=== PATIENT | female | born 1990 | race Hispanic/Latino ===

== ENCOUNTER 2018-06-19 11:03 | Inpatient (IN) | payer MEDICAID, OTHER ==
[2018-06-19 20:33] VITALS: BMI 37.5
[2018-06-19] MEDS ORDERED: Dextrose 5% in Water 1,000 ML IV PRN ×2 (21:49→22:08)
[2018-06-19] MEDS ORDERED: Dextrose 50% Abboject 50 ML SYRINGE SLOW IVP PRN ×2 (21:49→22:08)
[2018-06-19] MEDS ORDERED: Aspirin 81 mg Enteric Coated Tablet PO SCH (22:15)
--- NOTE | 2018-06-19 22:16 | PDOC.FPRHP ---
Addendum entered and electronically signed by Vita López MD 06/20/18 04:54 : HPI: 27 yo at 13.0 by 11.5 wk sravan Original Note: - History of Present Illness Chief Complaint: uncontrolled sugars History of Present Illness: 18 yo at 12.5 wks by 1T sravan sent as direct admit from [facility] for uncontrolled pregestational DM. FBG at home was 180 and postprandial 200s. Endorses polydipsia, denies other symptoms. Denies VB, LOF, CTX. - Allergies/Adverse Reactions Allergies Allergy/AdvReac Type Severity Reaction Status Date / Time No Known Allergies Allergy Unverified 04/02/14 00:09 - Home Medications Medication Instructions Recorded Confirmed Type Pnv No.95/Ferrous Fum/Folic AC 1 tablet PO DAILY 04/02/14 06/20/18 History [ Tablet] - History PMHx: denies PSHx: denies FHx: DM2 Social: denies t/e/d - Review of Systems General: denies: fever/chills, weight/appetite/sleep changes Eyes: denies: eye pain, vision changes ENT: denies: nasal congestion Respiratory: denies: congestion, shortness of breath Cardiovascular: denies: chest pain, palpitation, edema Gastrointestinal: denies: nausea, vomiting, diarrhea, constipation Genitourinary: denies: incontinence Musculoskeletal: denies: pain, tenderness Neurological: denies: seizure, weakness Psychological: denies: anxiety, depression - Vital signs BP: [125/70] HR: [82] RR: [18 Tmax: [98.2] Pox: [99% on [RA] Wt: [108kg] - Physical Exam Constitutional: NAD, awake, alert and oriented HEENT: normocephalic and atraumatic, PERRLA, EOMI, no scleral icterus, grossly normal vision Neck: supple, FROM Chest: no-tender to palpation Heart: RRR, normal S1/S2, no edema Lungs: CTAB, no respiratory distress, no wheezing, no retractions Abdomen: soft -Abdomen: gravid Neurological: no focal deficit, CN II-XII intact Skin: no rash/lesions, good turgor Heme/Lymphatic: no unusual bruising or bleeding Psychiatric: normal mood and affect, good judgment and insight, intact recent and remote memory FMR H&P: Results - Labs Result Diagrams: 06/19/18 22:36 FMR H&P: A/P - Problem List (1) in multigravida Current Visit: Yes Status: Acute Code(s): Z34.80 - ENCOUNTER FOR SUPRVSN OF NORMAL , UNSP TRIMESTER (2) Maternal pregestational diabetes, classes B through R Current Visit: Yes Status: Acute Code(s): [id number] - - Plan 27 yo @ ~13 wks by 1T sravan here for uncontrolled pregestational DM #pregestational DM, White Class B -A1c 10.3 here -TSH, EKG, CMP, 24 hr urine protein collection to better classify -CC diet with high fat/protein snack at bedtime -Start NPH 19U & Humalog 10U at breakfast, Humalog 7U pre-dinner, NPH 7U qHS -Accuchecks fasting & 2 hr postprandial -Pt has not eaten dinner, will feed dinner & start insulin regimen this evening -Will need to verify with clinic records dating with 1T US, if needed can repeat here -Start on daily aspirin -Diabetic education # in multigravida -Continue routine care with Dr. Vizcaino #Obesity -Desk Attendant on lifestyle modification dvt ppx: SCD Discussed w/ Dr. Lima FMR H&P: Upper Level - Plan Date/Time: 06/19/18 3444 I, [], have evaluated this patient and agree with findings/plan as outlined by collector of internal revenue resident. Pertinent changes/additions are listed here. Addendum - Attending - Attending Attestation Date/Time: 06/20/18 0080 I personally evaluated the patient and discussed the management with Dr. López I agree with the History, Examination, Assessment and Plan documented above with any addition or exceptions noted below.
[2018-06-19 23:07] LABS: Hemoglobin A1c 10.3 % (4.0-6.0)
[2018-06-19 23:11] LABS: ALT (SGPT) 14 U/L (8-55); AST (SGOT) 15 U/L (5-34); Albumin 3.6 g/dL (3.5-5.0); Alkaline Phosphatase 43 U/L (40-150); Anion Gap 13 mmol/L (10-20); BUN (Urea Nitrogen) 5 mg/dL (7.0-18.7); Bilirubin, Total 0.4 mg/dL (0.2-1.2); Calc. Creatinine Clearance 219 mL/min (70-130); Calcium 9.7 mg/dL (7.8-10.44); Carbon Dioxide 25 mmol/L (22-29); Chloride 100 mmol/L (98-107); Estimated GFR-MDRD Greater than 90; Globulin 3.7 g/dL (2.4-3.5); Glucose 140 mg/dL (70-105); Potassium 3.7 mmol/L (3.5-5.1); Protein, Total 7.3 g/dL (6.0-8.3); Sodium 134 mmol/L (136-145)
[2018-06-20 07:57] LABS: Bilirubin Negative (Negative); Blood, Urine Negative (Negative); Clarity CLOUDY (Clear); Glucose, Urine (Dipstick) Negative (Negative); Leukocyte Small (Negative); Nitrite Negative (Negative); Protein, Urine (Dipstick) Negative (Neg-Trace); Specific Gravity, Urine 1.007 (1.002-1.036); Urobilinogen 0.2 mg/dL (0.2-1.0)
[2018-06-20 07:59] LABS: Bacteria/HPF Rare-Few HPF (None Seen); Hyaline Casts/LPF 0-3 HYALINE CAST LPF (0-3 Hyaline); Pathc Cast-AUWi Flag 0.13 (0-2.49); Squamous Epithelial 0-3 HPF (0-3)
[2018-06-20 08:02] LABS: Sperm-AUWi Flag 145.9 (0-9.9); Yeast-AUWi Flag 813.8 (0-25.0)
[2018-06-20 08:12] LABS: RBC/HPF 0-3 HPF (0-3); Yeast-All Forms 3+ HPF (None Seen)
[2018-06-20] MEDS: Aspirin 81 mg Enteric Coated Tablet PO SCH (08:31)
--- NOTE | 2018-06-20 08:31 | PDOC.FM ---
- Subjective Subjective: No events overnight. Pts blood sugar remains above goal. Was given insulin last night. - Objective MAR Reviewed: Yes Vital Signs & Weight: Vital Signs (12 hours) Temp Pulse Resp BP Pulse Ox 06/20/18 07:43 98.1 F 80 20 122/72 98 Weight Weight 108.635 kg I&O: 06/19/18 06/20/18 06/21/18 06:59 06:59 06:59 Intake Total 1700 Balance 1700 Result Diagrams: 06/19/18 22:36 EKG Reviewed by me: Yes (NSR, Normal axis, No LVH) Phys Exam - Physical Examination Constitutional: NAD HEENT: PERRLA, moist MMs, sclera anicteric Neck: no JVD Respiratory: no wheezing, no rales, no rhonchi, clear to auscultation bilateral Cardiovascular: RRR, no significant murmur, no rub Gastrointestinal: soft, non-tender, no distention, positive bowel sounds Musculoskeletal: no edema, pulses present Neurological: non-focal, moves all 4 limbs Psychiatric: normal affect Dx/Plan (1) Maternal pregestational diabetes, classes B through R Code(s): [id number] - Status: Acute (2) History of pre-eclampsia Code(s): Z87.59 - PERSONAL HISTORY OF COMP OF PREG, CHLDBRTH AND THE PUERP Status: Acute (3) in multigravida Code(s): Z34.80 - ENCOUNTER FOR SUPRVSN OF NORMAL , UNSP TRIMESTER Status: Acute - Plan Plan: 27 yo @ ~13 wks by 1T sravan here for uncontrolled pregestational DM #pregestational DM, White Class B -A1c 10.3 here -TSH wnl, EKG wnl no LVH, 24 hr urine protein ordered and pending -CC diet with high fat/protein snack at bedtime -Start NPH & Humalog -Accuchecks fasting & 2 hr postprandial -Start on daily aspirin -Diabetic education, service center manager consulted # in multigravida -Continue routine care with Dr. Vizcaino # h/o preeclampsia - cont daily aspirin and PNV Addendum - Attending - Attending Attestation Date/Time: 06/20/18 1027 I personally evaluated the patient and discussed the management with Dr. Marshall. I agree with and repeated the History, Examination, Assessment and Plan documented above with any addition or exceptions noted below. No f/c/cp/sob/3P's/shakiness. Titrate insulin to lower range of recommended by perinatology. Monitor closely.
[2018-06-20] MEDS ORDERED: NPH, Human Insulin Isophane 300 UNIT/3 ML VIAL SC SCH ×4 (09:00→21:00)
[2018-06-20] MEDS ORDERED: HumaLOG 300 UNITS/3 ML VIAL SC SCH ×5 (09:00→17:00)
[2018-06-20] MEDS: Prenatal Vitamin 1 TAB PO SCH (10:03)
[2018-06-20] MEDS: Polyethylene Glycol 3350 17 GM Packet PO SCH (21:30)
[2018-06-21] MEDS: HumaLOG 300 UNITS/3 ML VIAL SC SCH (08:12)
[2018-06-21 08:42] LABS: Protein, Urine Less than 10 mg/dL (1-14); Urine Total Volume 1550 mL (600-1600)
[2018-06-21] MEDS: Prenatal Vitamin 1 TAB PO SCH (09:33)
[2018-06-21] MEDS: Aspirin 81 mg Enteric Coated Tablet PO SCH (09:33)
[2018-06-21] MEDS: NPH, Human Insulin Isophane 300 UNIT/3 ML VIAL SC SCH (09:34)
[2018-06-21] MEDS: Polyethylene Glycol 3350 17 GM Packet PO SCH (09:37)
--- NOTE | 2018-06-21 10:55 | PDOC.FM ---
- Subjective Subjective: KATE overnight. No episodes of hypoglycemia. Pt has no complaints. - Objective MAR Reviewed: Yes Vital Signs & Weight: Vital Signs (12 hours) Temp Pulse Resp BP Pulse Ox 06/21/18 07:00 98.6 F 88 14 107/73 98 Weight Weight 108.635 kg I&O: 06/20/18 06/21/18 06/22/18 06:59 06:59 06:59 Intake Total 1700 Output Total 1700 Balance 1700 -1700 Result Diagrams: 06/19/18 22:36 Phys Exam - Physical Examination Constitutional: NAD HEENT: PERRLA, moist MMs, sclera anicteric Neck: no JVD Respiratory: no wheezing, no rales, no rhonchi, clear to auscultation bilateral Cardiovascular: RRR, no significant murmur, no rub Gastrointestinal: soft, non-tender, no distention, positive bowel sounds Musculoskeletal: no edema Neurological: non-focal, moves all 4 limbs Psychiatric: normal affect Dx/Plan (1) Maternal pregestational diabetes, classes B through R Code(s): [id number] - Status: Acute (2) in multigravida Code(s): Z34.80 - ENCOUNTER FOR SUPRVSN OF NORMAL , UNSP TRIMESTER Status: Acute - Plan Plan: 27 yo @ ~13 wks by 1T sravan here for uncontrolled pregestational DM #pregestational DM, White Class B -A1c 10.3 here -TSH wnl, EKG wnl no LVH, 24 hr urine protein WNL -CC diet with high fat/protein snack at bedtime -Start NPH & Humalog -Accuchecks fasting & 2 hr postprandial -Diabetic education, accounts adjustable clerk consulted - increase insulin today and continue to monitor. # in multigravida -Continue routine care with Dr. Vizcaino # obesity affecting - cont daily aspirin and PNV Addendum - Attending - Attending Attestation Date/Time: 06/21/18 7228 I personally evaluated the patient and discussed the management with Dr. Marshall and team. I agree with the History, Examination, Assessment and Plan documented above with any addition or exceptions noted below.
[2018-06-21] MEDS ORDERED: HumaLOG 300 UNITS/3 ML VIAL SC SCH (17:00)
[2018-06-21] MEDS ORDERED: NPH, Human Insulin Isophane 300 UNIT/3 ML VIAL SC SCH (21:00)
--- NOTE | 2018-06-22 07:28 | PDOC.FM ---
- Subjective Subjective: There was no acute event overnight. No hypoglycemic episode. Patient and nursing staff voiced no concerns. - Objective MAR Reviewed: Yes Vital Signs & Weight: Vital Signs (12 hours) Temp Pulse Resp BP BP BP Pulse Ox 06/22/18 00:00 98.3 F 87 18 115/71 115/71 06/21/18 20:00 98.4 F 79 20 119/74 119/74 98 Weight Weight 108.635 kg I&O: 06/21/18 06/22/18 06/23/18 06:59 06:59 06:59 Intake Total 1240 Output Total 1700 Balance -1700 1240 Result Diagrams: 06/19/18 22:36 Phys Exam - Physical Examination Constitutional: NAD HEENT: moist MMs Neck: no JVD Respiratory: no wheezing, no rales, no rhonchi, clear to auscultation bilateral Cardiovascular: RRR, no significant murmur Gastrointestinal: soft, non-tender, no distention, positive bowel sounds Musculoskeletal: pulses present Neurological: non-focal, moves all 4 limbs Lymphatic: no nodes Psychiatric: normal affect, A&O x 3 Skin: no rash Dx/Plan (1) Maternal pregestational diabetes, classes B through R Code(s): [id number] - Status: Acute Plan: Currently patient still has hyperglycemic episode Adjusted patient's insulin by 15-20% Continue other current management Continue aspirin. (2) in multigravida Code(s): Z34.80 - ENCOUNTER FOR SUPRVSN OF NORMAL , UNSP TRIMESTER Status: Acute Plan: Continue to follow up with PCP for routine care (3) Yeast UTI Code(s): B37.49 - OTHER UROGENITAL CANDIDIASIS Status: Acute Plan: Patient asymptomatic, it was found due to reflex UA for yeast Oral antifungal would at this time can cause more harm then benefit to Currently plan to continue watchful waiting Addendum - Attending - Attending Attestation Date/Time: 06/22/18 9579 I personally evaluated the patient and discussed the management with Dr. Meadows. I agree with and repeated the History, Examination, Assessment and Plan documented above with any addition or exceptions noted below. Continue to titrate insulin as above.
[2018-06-22] MEDS ORDERED: NPH, Human Insulin Isophane 300 UNIT/3 ML VIAL SC SCH ×3 (07:33→08:30)
[2018-06-22] MEDS: HumaLOG 300 UNITS/3 ML VIAL SC SCH (07:50)
[2018-06-22] MEDS: Aspirin 81 mg Enteric Coated Tablet PO SCH (07:54)
[2018-06-22] MEDS: Prenatal Vitamin 1 TAB PO SCH (07:54)
[2018-06-22] MEDS: Polyethylene Glycol 3350 17 GM Packet PO SCH (07:54)
[2018-06-22] MEDS: NPH, Human Insulin Isophane 300 UNIT/3 ML VIAL SC SCH (07:57)
[2018-06-22] MEDS ORDERED: HumaLOG 300 UNITS/3 ML VIAL SC SCH ×2 (09:27→09:28)
--- NOTE | 2018-06-23 07:39 | PDOC.FM ---
Addendum entered and electronically signed by Francis Meadows MD 06/23/18 09:19: Made increase of 2 unit insulin to each of patient's scheduled insulin Original Note: - Subjective Subjective: Feeling well today, has no complaint. Denies dysuria, syncope, weakness, diaphoresis - Objective MAR Reviewed: Yes Vital Signs & Weight: Vital Signs (12 hours) Temp Pulse Resp BP 06/22/18 20:10 98.2 F 84 18 119/79 Weight Weight 108.635 kg I&O: 06/22/18 06/23/18 06/24/18 06:59 06:59 06:59 Intake Total 1240 800 Balance 1240 800 Result Diagrams: 06/19/18 22:36 Phys Exam - Physical Examination Constitutional: NAD HEENT: moist MMs Neck: no nodes Respiratory: no wheezing, no rales, no rhonchi Cardiovascular: no significant murmur, no rub Gastrointestinal: soft, non-tender, no distention Musculoskeletal: no edema Neurological: non-focal, moves all 4 limbs Lymphatic: no nodes Psychiatric: normal affect, A&O x 3 Skin: no rash Dx/Plan (1) Maternal pregestational diabetes, classes B through R Code(s): [id number] - Status: Acute Plan: Patient has only one hyperglycemic episode and this was in morning yesterday before insulin change was made Plan to continue insulin at current dosage, consider DC for outpatient management Continue aspirin. (2) in multigravida Code(s): Z34.80 - ENCOUNTER FOR SUPRVSN OF NORMAL , UNSP TRIMESTER Status: Acute Plan: Continue to follow up with PCP for routine care, will inform pcp of current plan. (3) Yeast UTI Code(s): B37.49 - OTHER UROGENITAL CANDIDIASIS Status: Acute Plan: Patient still asymptomatic, it was found due to reflex UA for yeast Oral antifungal would at this time can cause more harm then benefit to Currently plan to continue watchful waiting Addendum - Attending - Attending Attestation Date/Time: 06/23/1829 I personally evaluated the patient and discussed the management with Dr. Meadows. I agree with the History, Examination, Assessment and Plan documented above with any addition or exceptions noted below. Continued improvement. Increase dose again and monitor. Hopeful discharge later today or tomorrow.
[2018-06-23] MEDS ORDERED: NPH, Human Insulin Isophane 300 UNIT/3 ML VIAL SC SCH ×2 (09:00→09:19)
[2018-06-23] MEDS ORDERED: HumaLOG 300 UNITS/3 ML VIAL SC SCH ×2 (09:19)
[2018-06-23] MEDS: Aspirin 81 mg Enteric Coated Tablet PO SCH (10:07)
[2018-06-23] MEDS: Prenatal Vitamin 1 TAB PO SCH (10:07)
[2018-06-23] MEDS: Polyethylene Glycol 3350 17 GM Packet PO SCH (10:07)
[2018-06-23] MEDS: NPH, Human Insulin Isophane 300 UNIT/3 ML VIAL SC SCH (10:08)
--- NOTE | 2018-06-24 06:42 | PDOC.FM ---
- Subjective Subjective: Patient reports she has been more constipated recently, she is taking miralax which is helping. Discussed her insulin regimen, including the difference between her short and long acting insulin. Patient reports she understands and feels confident in being able to give her own insulin at home. Answered all questions. - Objective Vital Signs & Weight: Vital Signs (12 hours) Temp Pulse Resp BP Pulse Ox 06/23/18 20:30 98.2 F 74 18 130/69 99 Weight Weight 108.635 kg I&O: 06/22/18 06/23/18 06/24/18 06:59 06:59 06:59 Intake Total 1240 800 500 Balance 1240 800 500 Result Diagrams: 06/19/18 22:36 Phys Exam - Physical Examination Constitutional: NAD HEENT: moist MMs Neck: no nodes, supple Respiratory: no wheezing, clear to auscultation bilateral Cardiovascular: RRR, no significant murmur Gastrointestinal: soft, non-tender, positive bowel sounds Musculoskeletal: no edema, pulses present Neurological: non-focal, moves all 4 limbs Psychiatric: normal affect Skin: normal turgor, cap refill <2 seconds Dx/Plan (1) Maternal pregestational diabetes, classes B through R Code(s): [id number] - Status: Acute (2) in multigravida Code(s): Z34.80 - ENCOUNTER FOR SUPRVSN OF NORMAL , UNSP TRIMESTER Status: Acute (3) Yeast UTI Code(s): B37.49 - OTHER UROGENITAL CANDIDIASIS Status: Acute (4) Constipation Code(s): K59.00 - CONSTIPATION, UNSPECIFIED Status: Acute - Plan Plan: 27 yo at 13.4 by 11.5 wk sono presenting for uncontrolled DM white class B Maternal DM, White Class B -Currently on Humalog 20 u pre-supper, and Humulin 46 u AM, 22 u PM -A1C 10.3 -Plan to continue insulin at current dosage, consider DC for outpatient management -Continue aspirin Multigravida -Continue to follow up with PCP, Dr. Jeannie Vizcaino for routine care, will inform pcp of current plan. Yeast UTI -Patient still asymptomatic, most likely contaminant as skin nicko also present and less than <100,000 colonies -Oral antifungal would at this time can cause more harm then benefit to -Currently plan to continue watchful waiting Constipation -Continue miralax daily for constipation Addendum - Attending - Attending Attestation Date/Time: 06/24/18 1241 I personally evaluated the patient and discussed the management with Dr. Winter I agree with the History, Examination, Assessment and Plan documented above with any addition or exceptions noted below. 27 yo female at 13.4 wks by 11.2 wk jacko admitted for uncontrolled pregestational DM in HD# 5 JONATHAN: 12/26/18 Patient reports she is doing well. No episodes of hypoglycemia. Currently on over 100 units of insulin a day and still not controlled. Discussed changing to long acting basal insulin. Discussed risk with . VS and labs reviewed. Agree with PE as documented. 1. pregestational class B DM: Will switch to long acting and short acting insulin. Will be able to control episodes of hyperglycemia a little better with long acting. Insurance contacted. Will cover Lantus. Will adjust shorting acting with meals. Patient has glucometer at home and feels comfortable to use. s/p DM education and nutrition. Last eye exam in March. No evidence of renal disease, eye disease, or LVH. Will need MFM referral outpatient. 2. preE ppx: Continue ASA until delivery 3. BMI 38: Daily exercise and dietary modifications. No more than 20 lbs this . 4. hx of SAB 5. yeast on UA: Clean catch. Unsure if truly cystitis. Cath specimen today. Will treat with topical azole. Patient asymptomatic. Dispo: Monitor glucose closely. Switch to long/short insulin regiment. Possible home tomorrow. Rayo
[2018-06-24] MEDS: NPH, Human Insulin Isophane 300 UNIT/3 ML VIAL SC SCH (08:15)
[2018-06-24] MEDS: Prenatal Vitamin 1 TAB PO SCH (09:30)
[2018-06-24] MEDS: Polyethylene Glycol 3350 17 GM Packet PO SCH (09:30)
[2018-06-24] MEDS: Aspirin 81 mg Enteric Coated Tablet PO SCH (09:30)
[2018-06-24] MEDS ORDERED: NPH, Human Insulin Isophane 300 UNIT/3 ML VIAL SC SCH (10:45)
[2018-06-24 15:56] LABS: Bacteria/HPF None Seen HPF (None Seen); Bilirubin Negative (Negative); Blood, Urine Negative (Negative); Clarity CLOUDY (Clear); Glucose, Urine (Dipstick) Negative (Negative); Leukocyte Small (Negative); Nitrite Negative (Negative); Protein, Urine (Dipstick) Negative (Neg-Trace); Specific Gravity, Urine 1.019 (1.002-1.036); WBC/HPF None Seen HPF (0-3); pH, Urine 5.5 (5.0-9.0)
[2018-06-24 15:58] LABS: Pathc Cast-AUWi Flag 8.16 (0-2.49); Yeast-AUWi Flag 1104.2 (0-25.0)
[2018-06-24] MEDS ORDERED: HumaLOG 300 UNITS/3 ML VIAL SC PRN (16:12)
[2018-06-24] MEDS ORDERED: HumaLOG 300 UNITS/3 ML VIAL SC SCH ×2 (16:13→17:00)
[2018-06-24 16:15] LABS: RBC/HPF 0-3 HPF (0-3)
[2018-06-24 16:16] LABS: Hyaline Casts/LPF 0-3 HYALINE CAST LPF (0-3 Hyaline); Other Casts/LPF None Seen LPF (0-3 Hyaline); Urine Culture Reflex No No; Yeast-All Forms 4+ HPF (None Seen)
[2018-06-24] MEDS ORDERED: PRE FILLED SC SCH (21:00)
[2018-06-24] MEDS ORDERED: INSULIN GLARGINE SC SCH (21:00)
[2018-06-24] MEDS ORDERED: Insulin Glargine 50 UNITS in Pre-Filled Syringe SC SCH (21:30)
[2018-06-25] MEDS: HumaLOG 300 UNITS/3 ML VIAL SC SCH ×2 (08:17→13:06)
[2018-06-25] MEDS: Prenatal Vitamin 1 TAB PO SCH (08:23)
[2018-06-25] MEDS: Polyethylene Glycol 3350 17 GM Packet PO SCH (08:23)
[2018-06-25] MEDS: Aspirin 81 mg Enteric Coated Tablet PO SCH (08:23)
--- NOTE | 2018-06-25 08:41 | PDOC.OBAPN ---
FMR OB AP PN: Sub - Interval History Hospital Day: 6 Chief Complaint: No complaint offered Interval History: Pt doing well. Reports BG of 59 last night. Denies any other hypoglycemia FMR OB AP PN: Obj - Maternal Vital signs: BP: [114/63] HR: [77] RR: [18] Tmax: [98.7] Pox: [98]% on [RA] - Urine output I&O: 06/24/18 06/25/18 06/26/18 06:59 06:59 06:59 Intake Total 500 480 Balance 500 480 FMR OB AP PN: Exam - Physical Exam General: NAD, awake, alert and oriented HEENT: normocephalic and atraumatic, PERRLA, grossly normal vision, grossly normal hearing Neck: supple, trachea midline Heart: RRR, normal S1/S2, no murmurs/rubs/gallops, pulses present, no edema General: CTAB, no respiratory distress, good air movement, no rales/rhonchi, no wheezing, no retractions Abdomen: soft, gravid, non-tender, bowel sound present, no masses Musculoskeletal: normal gait and station, pulses present, FROM in all four extremities Neurological: sensation to pain,touch and proprioception grossly normal Skin: no rash, capillary refill <2 seconds Psychiatric: intact recent and remote memory, good judgement and insight, normal mood and affect FMR OB AP PN: Data - Labs Lab results: Laboratory Results - last 24 hr 06/24/18 06/24/18 06/24/18 08:13 10:33 15:31 POC Glucose 120 H 133 H Urine Color YELLOW Urine Clarity CLOUDY Urine pH 5.5 Ur Specific [place] 1.019 Urine Protein Negative Urine Glucose (UA) Negative Urine Ketones 15 H Urine Blood Negative Urine Nitrite Negative Urine Bilirubin Negative Urine Urobilinogen 1.0 Ur Leukocyte Esterase Small H Urine RBC 0-3 Urine WBC None Seen Ur Squamous Epith Cells 7-10 H Urine Bacteria None Seen Hyaline Casts 0-3 HYALINE CAST Other Casts None Seen Urine Yeast 4+ H Urine Culture Reflexed No 06/24/18 06/25/18 16:09 05:49 POC Glucose 152 H 104 Urine Color Urine Clarity Urine pH Ur Specific [place] Urine Protein Urine Glucose (UA) Urine Ketones Urine Blood Urine Nitrite Urine Bilirubin Urine Urobilinogen Ur Leukocyte Esterase Urine RBC Urine WBC Ur Squamous Epith Cells Urine Bacteria Hyaline Casts Other Casts Urine Yeast Urine Culture Reflexed FMR OB AP PN: A/P - Problem List (1) Maternal pregestational diabetes, classes B through R Current Visit: Yes Status: Acute Code(s): [id number] - (2) in multigravida Current Visit: Yes Status: Acute Code(s): Z34.80 - ENCOUNTER FOR SUPRVSN OF NORMAL , UNSP TRIMESTER (3) Yeast UTI Current Visit: Yes Status: Acute Code(s): B37.49 - OTHER UROGENITAL CANDIDIASIS Disposition: 27 yo at 13.5wks by 11.5 wk sravan presenting for uncontrolled DM white class B Maternal DM, White Class B -Pt insurance covers lantus medication. Switched to insulin for baseline. Got 50 units yesterday. Fasting sugar 104 today. Will add 2 units to basal insulin -Pt had episode of hypoglycemia with sugar of 59. Decreased Lispro mealtime insulin to 15 units. Will follow with 2 hr pp sugars today. -A1C 10.3, decreased from A1c of 11 at office visit. -Will consider C-peptide to rule out Type 1 vs Type 2 diabetes as pt was recently diagnosed. -Case Management consulted for assistance with diabetic supplies. -Continue aspirin Multigravida -Continue to follow up with PCP, Dr. Jeannie Vizcaino for routine care, will inform pcp of current plan. Yeast UTI -06/20 U/A showed yeast in urine. Patient still asymptomatic, most likely contaminant as skin nicko also present and less than <100,000 colonies -Repeat 06/24 U/A cath UTI shows yeast in Urine again. 7-10 sq epithelial cells. again may not be clean catch. Will await cx to see how many CFU grow. -Oral antifungal would at this time can cause more harm then benefit to -Currently plan to continue watchful waiting Constipation -Continue miralax daily for constipation Discussion: Date/Time: 06/25/18 4042 This H&P was discussed with [] and [] who agree with the above documentation and plan. Addendum - Attending - Attending Attestation Date/Time: 06/25/18 9731 I personally evaluated the patient and discussed the management with Dr. Berg I agree with the History, Examination, Assessment and Plan documented above with any addition or exceptions noted below. 27 yo female at 13.5 wks by 11.2 wk jacko admitted for uncontrolled pregestational DM in HD# 6 JONATHAN: 12/26/18 1 episode of hypoglycemia 2 hours after dinner. Lispor adjusted. Otherwise did will with insulin adjustments. VS and labs reviewed. Agree with PE as documented. 1. pregestational class B DM: Currenlty on Lantus 50 and Lispro . Will adjust to Lantus 52 and Lispro . Patient has glucometer at home and feels comfortable to use. s/p DM education and nutrition. Last eye exam in March. No evidence of renal disease, eye disease, or LVH. Will need MFM referral outpatient. Will monitor through lunch and likely d/c to home after 2 hour pp. Patient to send someone to pharmacy this morning to make sure able to get insulin prior to discharge. 2. preE ppx: Continue ASA until delivery 3. BMI 38: Daily exercise and dietary modifications. No more than 20 lbs this . 4. hx of SAB 5. yeast on UA: Cath not properly collected. Epithelial cells present. Will treat externally for yeast. Repeat clean catch in 1 wk. Dispo: Monitor glucose throughout the morning. Possible home after lunch 2 hour pp. Followup visit scheduled for Sunday. Rayo
[2018-06-25 16:13] VITALS: BP 118/70; TEMP 98.3
[2018-06-25] MEDS ORDERED: Insulin Glargine 50 UNITS in Pre-Filled Syringe SC SCH (21:00)
== END 2018-06-25 19:00 | disposition home health service (06) | DRG 832 ==
LOC: INTOOBSV 19:31 → 3SE 19:31 → OBSVTOIN 06-22 08:31
PROVIDERS: ADMIT Family Medicine; ATTEND Family Medicine
DX: O24.311 Unspecified pre-existing diabetes mellitus in pregnancy, first trimester (principal); O23.41 Unspecified infection of urinary tract in pregnancy, first trimester; B37.49 Other urogenital candidiasis; O99.211 Obesity complicating pregnancy, first trimester; E11.649 Type 2 diabetes mellitus with hypoglycemia without coma; E66.9 Obesity, unspecified; O99.611 Diseases of the digestive system complicating pregnancy, first trimester; K59.00 Constipation, unspecified; Z3A.13 13 weeks gestation of pregnancy
CPT/HCPCS: 36415; 36416; 80053; 81001; 83036; 84156; 84443; 84681; 87086; 93005; 93010; A4353; J1815; J1825